=== PATIENT | male | born 1960 | race Caucasian/White ===

== ENCOUNTER 2017-09-21 14:51 | Emergency (ER) | payer SELFPAY ==
--- NOTE | 2017-09-21 18:08 | RAD REPORT ---
EXAM DESCRIPTION: RAD - Knee Right 3 View - 09/21/2017 5:50 pm CLINICAL HISTORY: Knee pain and swelling COMPARISON: None. FINDINGS: No fracture, dislocation or periosteal reaction.No joint effusion seen. Minimal narrowing of the medial compartment of the knee. Meniscal degenerative calcifications are present. Large spur i s seen at the quadriceps attachment to the patella. Patient has pronounced soft tissue thickening ant erior to the patella. No air or foreign body. Edema extend to the medial and lateral subcutaneous fat ty tissues. IMPRESSION: Minimal medial compartment degenerative changes with no acute bone or joint finding. Pronounced anterior knee soft tissue swelling. Findings appear to be all extra-articular. Clinical concerns for internal derangement or occult bony injury could be further assessed with MR im aging.
--- NOTE | 2017-09-21 18:08 | RAD REPORT ---
EXAM DESCRIPTION: VAS - Extremity Venous Uni Ltd - 09/21/2017 5:56 pm CLINICAL HISTORY: Leg pain and swelling COMPARISON: None. TECHNIQUE: Real-time sonographic evaluation of the right lower extremity deep venous systems was per formed. FINDINGS: Normal compressibility, flow augmentation, phasic flow and spontaneous flow are identified in the right lower extremity deep venous system. No intraluminal filling defects seen. IMPRESSION: No DVT in the right lower extremity.
[2017-09-21 18:37] LABS: Absolute Lymphocytes (CBC) 1.3 K/uL (0.7-4.9); Absolute Monocytes 0.7 K/uL (0.1-1.3); Absolute Neutrophil 3.2 K/uL (1.8-8.0); Basophils % 0.7 % (0-1.3); Eosinophils % 2.6 % (0-4.4); Hematocrit 40.5 % (39.6-49.0); Lymphocytes % 24.5 % (15.3-44.8); MCH 30.1 pg (27.0-35.0); MCV 89.3 fL (80-100); MPV 8.5 fL (7.6-11.3); Monocytes % 13.6 % (3.3-12.3); RBC Red Blood Cell Count 4.53 M/uL (4.33-5.43)
[2017-09-21 18:41] LABS: Bicarbonate 28 mEq/L (21-31); Glucose Level 94 mg/dL (65-120); Potassium 4.1 mEq/L (3.6-5.0); Sodium Level 139 mEq/L (135-145)
[2017-09-21 18:50] LABS: BUN Blood Urea Nitrogen 19 mg/dL (6-20); C-Reactive Protein 5.8 mg/L (<10.0); Glomerular Filtration Rate > 90 mL/min (=/>90); Uric Acid 4.8 mg/dL (4.8-8.7)
--- NOTE | 2017-09-21 18:56 | ER ---
Nurse's Notes [facility] Name: Darren Flores Age: 57 yrs Sex: Male : 1960 Arrival Date: 09/21/2017 Time: 14:55 Bed 23 Private MD: Diagnosis: Pain in right knee;Prepatellar bursitis, right knee Presentation: 09/21 15:33 Presenting complaint: Patient states: i noticed my R knee and R ankle and L ankle hj started to swell since last night; this is new to me; denies fever and chills; denies chest pain or SOB: denies trauma to the area;. Transition of care: patient was not received from another setting of care. Onset of symptoms was September 21, 2017. Care prior to arrival: None. 15:33 Method Of Arrival: Ambulatory 15:33 Acuity: VJ 3 hj Triage Assessment: 15:38 General: Appears in no apparent distress. uncomfortable, Behavior is calm, cooperative, hj appropriate for age. Pain: Complains of pain in right leg. Historical: - Allergies: 15:38 No Known Allergies; hj - Home Meds: 15:38 amlodipine 10 mg tab 1 tab once daily [Active]; Plavix 75 mg Oral tab 1 tab once daily hj [Active]; atorvastatin 80 mg oral tab 1 tab once daily [Active]; metoprolol tartrate 25 mg Oral tab 1 tab 2 times per day [Active]; - PMHx: 15:38 Hypertension; CVA; Hyperlipidemia; hj - PSHx: 15:38 open exploratory abdominal surgery; 15:38 Heart stents; hj - Immunization history:: Adult Immunizations up to date. - Social history:: Smoking status: Patient/guardian denies using tobacco, never smoked. Screenin:52 Abuse screen: Denies threats or abuse. Nutritional screening: No deficits noted. tl3 Tuberculosis screening: No symptoms or risk factors identified. Fall Risk None identified. 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 General: Appears comfortable, obese, well groomed, well developed, well nourished, Behavior is calm, cooperative, appropriate for age. Pain: Complains of pain in right leg Pain currently is 5 out of 10 on a pain scale. Neuro: Level of Consciousness is awake, alert, obeys commands, Oriented to person, place, time, situation, Appropriate for age. Cardiovascular: Heart tones S1 S2 present Capillary refill < 3 seconds in right in left fingers. Cardiovascular: Pulses Edema is 1+ to right midcalf and right ankle pitting to right midcalf and right ankle. Respiratory: Airway is patent Breath sounds are clear bilaterally. GI: No signs and/or symptoms were reported involving the gastrointestinal system. : No signs and/or symptoms were reported regarding the genitourinary system. EENT: No signs and/or symptoms were reported regarding the EENT system. Derm: No signs and/or symptoms reported regarding the dermatologic system. Musculoskeletal: No signs and/or symptoms reported regarding the musculoskeletal system. 19:36 Reassessment: Patient appears in no apparent distress at this time. No changes from tl3 previously documented assessment. Patient and/or family updated on plan of care and expected duration. Pain level reassessed. Patient is alert, oriented x 3, equal unlabored respirations, skin warm/dry/pink. Vital Signs: 15:38 BP 117 / 72; Pulse 74; Resp 18; Temp 98.5(TE); Pulse Ox 95% on R/A; Weight 113.4 kg; hj Height 6 ft. 0 in. (182.88 cm); Pain 4/10; 16:52 BP 125 / 111; Pulse 68; Resp 18; Pulse Ox 98% ; tl3 19:36 BP 126 / 78; Pulse 68; Resp 18; Pulse Ox 97% ; tl3 15:38 Body Mass Index 33.91 (113.40 kg, 182.88 cm) ED Course: 14:55 Patient arrived in ED. rg4 15:35 Triage completed. hj 15:38 Arm band placed on right wrist. hj 16:06 Elizabeth Naqvi FNP-C is [facility]. snw 16:06 Benedict Martinez MD is Attending Physician. snw 16:44 Riddhi Luna, OSEAS is Primary Nurse. tl3 16:52 Resting quietly. Awaiting ED provider evaluation. tl3 16:52 Patient has correct armband on for positive identification. Bed in low position. Call tl3 light in reach. Side rails up X 1. Adult w/ patient. Pulse ox on. NIBP on. 16:52 No provider procedures requiring assistance completed. tl3 17:15 Inserted saline lock: 22 gauge in right hand, using aseptic technique. Blood collected. tl3 17:30 X-ray(s) taken. tl3 17:51 X-ray completed. Portable x-ray completed in exam room. Patient tolerated procedure ml well. 17:56 Ultrasound completed. Patient tolerated well. Notified [employer] PATH THERAPIST/PA . cy 18:54 Roque Miller MD is Referral Physician. snw 19:36 IV discontinued, intact, bleeding controlled, No redness/swelling at site. Pressure tl3 dressing applied. 09/22 00:46 CRP Sent. tl3 00:46 Chem 7 Sent. tl3 00:46 Uric Acid Sent. tl3 00:47 Blood Culture Adult (2) Sent. tl3 00:47 CBC with Diff Sent. tl3 00:47 Knee Right 3 View XRAY Sent. tl3 00:47 US Extremity Venous Uni Ltd Sent. tl3 Administered Medications: 09/21 18:53 Drug: [place] 5 mg-325 mg 1 tabs Route: PO; iw 19:59 Follow up: Response: No adverse reaction tl3 18:53 Drug: Colcrys 1.2 mg Route: PO; iw 19:58 Follow up: Response: No adverse reaction tl3 Outcome: 18:55 Discharge ordered by MD. snw 19:59 Patient left the ED. tl3 09/22 00:51 Discharged to home ambulatory. tl3 Condition: stable Discharge instructions given to patient, family, Instructed on discharge instructions, follow up and referral plans. medication usage, Demonstrated understanding of instructions, follow-up care. Signatures: Elizabeth Naqvi, ALLERGY PHYSICIAN-C ALLERGY PHYSICIAN-Csnw Lisbet Ortega, RN Felipa Lewis Henry, RN RN hj Garcia, Rubi rg4 [place] Tammy, RN RN tl3 Corrections: (The following items were deleted from the chart) 09/21 15:40 15:38 Pulse 74bpm; Resp 18bpm; Pulse Ox 95% RA; Temp 98.5F Temporal; 113.4 kg; Height 6 hj ft. 0 in.; BMI: 33.9; Pain 4/10; hj
--- NOTE | 2017-09-21 18:56 | EDPHYS ---
Physician Documentation [facility] Name: Darren Flores Age: 57 yrs Sex: Male : 1960 Arrival Date: 09/21/2017 Time: 14:55 Bed 23 Private MD: ED Physician Benedict Martinez HPI: 09/21 17:39 This 57 yrs old Male presents to ER via Ambulatory with complaints of Knee snw Pain, Leg Swelling. 17:39 The patient presents with swelling, tenderness. The complaints affect the right knee, snw anterior aspect of right ankle and dorsum of right foot. Context: The problem was sustained at home, resulted from an unknown cause, the patient can fully bear weight, the patient is able to ambulate, Problem is a result from a previous injury: No. Onset: The symptoms/episode began/occurred suddenly, on awakening. Associated signs and symptoms: Pertinent positives: swelling, walks up scaffolds all day. Severity of symptoms: At their worst the symptoms were moderate. The patient has not experienced similar symptoms in the past. The patient has not recently seen a physician. Historical: - Allergies: 15:38 No Known Allergies; hj - Home Meds: 15:38 amlodipine 10 mg tab 1 tab once daily [Active]; Plavix 75 mg Oral tab 1 tab once daily [Active]; atorvastatin 80 mg oral tab 1 tab once daily [Active]; metoprolol tartrate 25 mg Oral tab 1 tab 2 times per day [Active]; - PMHx: 15:38 Hypertension; CVA; Hyperlipidemia; hj - PSHx: 15:38 open exploratory abdominal surgery; 15:38 Heart stents; hj - Immunization history:: Adult Immunizations up to date. - Social history:: Smoking status: Patient/guardian denies using tobacco, never smoked. ROS: 17:42 Constitutional: Negative for fever, chills, and weight loss, Eyes: Negative for injury, snw pain, redness, and discharge, ENT: Negative for injury, pain, and discharge, Neck: Negative for injury, pain, and swelling, Cardiovascular: Negative for chest pain, palpitations, and edema, Respiratory: Negative for shortness of breath, cough, wheezing, and pleuritic chest pain, Abdomen/GI: Negative for abdominal pain, nausea, vomiting, diarrhea, and constipation, Back: Negative for injury and pain, : Negative for injury, bleeding, discharge, and swelling, Skin: Negative for injury, rash, and discoloration, Neuro: Negative for headache, weakness, numbness, tingling, and seizure, Psych: Negative for depression, anxiety, suicide ideation, homicidal ideation, and hallucinations. 17:42 MS/extremity: Positive for swelling, tenderness, of the right knee and right ankle. Exam: 17:38 Constitutional: This is a well developed, well nourished patient who is awake, alert, snw and in no acute distress. Head/Face: Normocephalic, atraumatic. Eyes: Pupils equal round and reactive to light, extra-ocular motions intact. Lids and lashes normal. Conjunctiva and sclera are non-icteric and not injected. Cornea within normal limits. Periorbital areas with no swelling, redness, or edema. ENT: Nares patent. No nasal discharge, no septal abnormalities noted. Tympanic membranes are normal and external auditory canals are clear. Oropharynx with no redness, swelling, or masses, exudates, or evidence of obstruction, uvula midline. Mucous membranes moist. Neck: Trachea midline, no thyromegaly or masses palpated, and no cervical lymphadenopathy. Supple, full range of motion without nuchal rigidity, or vertebral point tenderness. No Meningismus. Chest/axilla: Normal chest wall appearance and motion. Nontender with no deformity. No lesions are appreciated. Cardiovascular: Regular rate and rhythm with a normal S1 and S2. No gallops, murmurs, or rubs. Normal PMI, no JVD. No pulse deficits. Respiratory: Lungs have equal breath sounds bilaterally, clear to auscultation and percussion. No rales, rhonchi or wheezes noted. No increased work of breathing, no retractions or nasal flaring. Abdomen/GI: Soft, non-tender, with normal bowel sounds. No distension or tympany. No guarding or rebound. No evidence of tenderness throughout. Back: No spinal tenderness. No costovertebral tenderness. Full range of motion. Skin: Warm, dry with normal turgor. Normal color with no rashes, no lesions, and no evidence of cellulitis. Neuro: Awake and alert, GCS 15, oriented to person, place, time, and situation. Cranial nerves II-XII grossly intact. Motor strength 5/5 in all extremities. Sensory grossly intact. Cerebellar exam normal. Normal gait. Psych: Awake, alert, with orientation to person, place and time. Behavior, mood, and affect are within normal limits. 17:38 Musculoskeletal/extremity: Extremities: grossly normal except: noted in the right knee, anterior aspect of right ankle and dorsum of right foot: decreased ROM, swelling, tenderness, ROM: intact in all extremities, Circulation is intact in all extremities. Sensation intact. Vital Signs: 15:38 BP 117 / 72; Pulse 74; Resp 18; Temp 98.5(TE); Pulse Ox 95% on R/A; Weight 113.4 kg; hj Height 6 ft. 0 in. (182.88 cm); Pain 4/10; 16:52 BP 125 / 111; Pulse 68; Resp 18; Pulse Ox 98% ; tl3 19:36 BP 126 / 78; Pulse 68; Resp 18; Pulse Ox 97% ; tl3 15:38 Body Mass Index 33.91 (113.40 kg, 182.88 cm) MDM: 16:07 Patient medically screened. wilman 18:56 Data reviewed: vital signs, nurses notes. Data interpreted: Pulse oximetry: on room air snw is 98 %. Interpretation: normal. Counseling: I had a detailed discussion with the patient and/or guardian regarding: the historical points, exam findings, and any diagnostic results supporting the discharge/admit diagnosis, the presence of at least one elevated blood pressure reading (>120/80) during this emergency department visit, lab results, radiology results, the need for outpatient follow up, to return to the emergency department if symptoms worsen or persist or if there are any questions or concerns that arise at home. Special discussion: I have referred the patient to see his PCP for further evaluation of high blood pressure. Based on the history and exam findings, there is no indication for further emergent testing or inpatient evaluation. I discussed with the patient/guardian the need to see the orthopedic surgeon for further evaluation of the symptoms. 09/21 17:22 Order name: CBC with Diff snw 09/21 17:22 Order name: Blood Culture Adult (2) snw 09/21 17:22 Order name: Uric Acid snw 09/21 17:22 Order name: Chem 7 snw 09/21 17:22 Order name: CRP snw 09/21 18:41 Order name: CBC with Automated Diff; Complete Time: 18:46 EDMS 09/21 17:05 Order name: US Extremity Venous Uni Ltd sn 09/21 17:22 Order name: Knee Right 3 View XRAY [facility] 09/21 18:08 Order name: RAD; Complete Time: 18:09 EDMS 09/21 18:09 Order name: VAS; Complete Time: 18:09 EDMS 09/21 18:41 Order name: Basic Metabolic Panel; Complete Time: 18:53 EDMS 09/21 18:51 Order name: Uric Acid; Complete Time: 18:53 EDMS 09/21 18:51 Order name: C-Reactive Protein; Complete Time: 18:53 EDMS 09/21 15:40 Order name: EKG; Complete Time: 15:41 hj Administered Medications: 18:53 Drug: [place] 5 mg-325 mg 1 tabs Route: PO; iw 19:59 Follow up: Response: No adverse reaction tl3 18:53 Drug: Colcrys 1.2 mg Route: PO; iw 19:58 Follow up: Response: No adverse reaction tl3 Disposition: 09/22 14:46 Co-signature as Attending Physician, Benedict Martinez MD I agree with the assessment and wilman plan of care. Disposition: 09/21/17 18:55 Discharged to Home. Impression: Pain in right knee, Prepatellar bursitis, right knee. - Condition is Stable. - Discharge Instructions: Arthralgia, Bursitis, Musculoskeletal Pain, Repetitive Strain Injuries, Knee Pain, Cryotherapy, [id number], Cryotherapy, Heat Therapy. - Prescriptions for Diclofenac Sodium 75 mg Oral Tablet Sustained Release - take 1 tablet by ORAL route 2 times per day; 30 tablet. orphenadrine citrate 100 mg Oral Tablet Sustained Release - take 1 tablet by ORAL route 2 times per day As needed; 20 tablet. - Work release form, Medication Reconciliation Form, Thank You Letter, Antibiotic Education, Prescription Opioid Use form. - Follow up: Roque Miller MD; When: 2 - 3 days; Reason: Recheck today's complaints, Continuance of care. Signatures: Dispatcher [employer] Benedict Hook MD MD cha Therrien, Shelly, ALMOND PASTE MOLDER-C ALMOND PASTE MOLDER-Csnw Lisbet Ortega RN RN Phuc, Silverio, RN RN hj Cheryl, Riddhi, RN RN tl3
[2017-09-21] MEDS ORDERED: COLCHICINE 0.6 MG TAB ONE (19:11)
[2017-09-21] MEDS ORDERED: HYDROCODONE/APAP 5/325 MG TAB ONE (19:11)
[2017-09-21 20:11] VITALS: TEMP 98.5
[2017-09-21 20:13] VITALS: BP 126/78; O2SAT 97
== END 2017-09-21 19:59 | disposition home or self-care (01) ==
LOC: ER 14:51
DX: M70.41 Prepatellar bursitis, right knee (principal); Y93.9 Activity, unspecified; I10 Essential (primary) hypertension; E78.5 Hyperlipidemia, unspecified
CPT/HCPCS: 36415; 80048; 84550; 85025; 86140; 87040; 93971; 99284